=== PATIENT | female | born 1980 | race Hispanic/Latino ===

== ENCOUNTER 2017-09-08 10:59 | Inpatient (IN) | payer MEDICAID, OTHER ==
[~2017-09-08] VITALS: Ht 160 cm; Wt 79.4 kg
[2017-09-08 11:45] LABS: BASOPHILS % (AUTO) 0.3 % (0.0-5.0); EOSINOPHILS % (AUTO) 0.4 % (0.0-8.0); HEMATOCRIT 44.6 % (36-48); LYMPHOCYTES % (AUTO) 23.3 % (21.0-51.0); MEAN CORPUSCULAR HEMOGLOBIN 29.5 pg (27.0-33.0); MEAN CORPUSCULAR HGB CONC 34.3 g/dL (32.0-36.0); MEAN CORPUSCULAR VOLUME 86.1 fL (79-99); MONOCYTES % (AUTO) 3.7 % (3.0-13.0); NEUTROPHILS % (AUTO) 72.3 % (40.0-77.0); PLATELET COUNT (AUTO) 220 K/uL (130-400); RED BLOOD CELL COUNT(AUTO) 5.18 MIL/uL (4.00-5.50); RED CELL DISTRIBUTION WIDTH 14.7 % (11.0-15.5); WHITE BLOOD COUNT (AUTO) 6.4 K/uL (4.8-10.8)
[2017-09-08 11:50] LABS: APPEARANCE,URINE Clear (CLEAR); BILIRUBIN,URINE Negative (NEGATIVE); COLOR,URINE Yellow (YELLOW); GLUCOSE, URINE (UA) Negative (NEGATIVE); KETONES,URINE Negative (NEGATIVE); LEUKOCYTE ESTERASE ,URINE Negative (NEGATIVE); NITRATE,URINE Negative (NEGATIVE); OCCULT BLOOD,URINE Negative (NEGATIVE); PH,URINE 6.5 (5.0-8.0); PROTEIN,URINE 300 (NEGATIVE); UROBILINOGEN,URINE 0.2 mg/dL (0.2-1.0)
[2017-09-08 11:55] LABS: CREATININE 0.8 mg/dL (0.5-1.5); POTASSIUM 3.8 mmol/L (3.5-5.1)
[2017-09-08 11:56] LABS: INR 0.85 (0.85-1.15)
[2017-09-08 12:01] LABS: ALBUMIN 3.3 g/dL (3.5-5.0); BILIRUBIN,TOTAL 0.3 mg/dL (0.2-1.0); TOTAL PROTEIN, SERUM 8.1 g/dL (6.0-8.3); URIC ACID 4.1 mg/dL (2.6-7.2)
[2017-09-08 12:09] LABS: BACTERIA,URINE Rare /HPF (None Seen); RBC,URINE 0-1 /HPF (0-1); WBC,URINE None Seen /HPF (0-1)
[2017-09-08 12:10] LABS: PARTIAL THROMBOPLASTIN TIME 25.4 SEC (26.3-35.5)
[2017-09-08] MEDS: LACTATED RINGERS 1000ML 1,000 ML IV SCH (13:05)
[2017-09-08] MEDS ORDERED: CEFTRIAXONE SODIUM 1 GM IVP SCH (13:30)
[2017-09-08] MEDS: ACETAMINOPHEN EXTRA STRENGTH 500 MG TABLET PO SCH (13:36)
[2017-09-08] MEDS ORDERED: LACTATED RINGERS 1000ML 1,000 ML IV SCH (15:56)
[2017-09-08] MEDS ORDERED: CEFAZOLIN SODIUM 1 GM VIAL IVP PRN (16:00)
[2017-09-08] MEDS ORDERED: MAGNESIUM 4GM PREMIX 100ML 100 ML IV PRN ×2 (16:00)
[2017-09-08] MEDS ORDERED: CALCIUM GLUCONATE 1 GM/10 ML VIAL IVP PRN (16:00)
[2017-09-08] MEDS ORDERED: MAGNESIUM SULFATE 1,000 ML IV ONE (16:05)
[2017-09-08] MEDS ORDERED: DURAMORPH PF1 MG/ML 10ML AMP IV ONE (16:20)
[2017-09-08] MEDS ORDERED: CEFAZOLIN SODIUM 1 GM VIAL IVP ONE (16:25)
[2017-09-08] MEDS ORDERED: MIDAZOLAM HCL 1 MG/ML 2ML VIAL ONE (16:51)
[2017-09-08] MEDS ORDERED: OXYTOCIN 10 UNIT/1ML 10ML VIAL ONE (16:51)
[2017-09-08] MEDS ORDERED: EPHEDRINE-NS PF 50MG/5ML SYRINGE IV ONE (17:01)
[2017-09-08] MEDS ORDERED: ONDANSETRON HCL 4 MG/2 ML VIAL ONE (17:06)
[2017-09-08] MEDS ORDERED: ONDANSETRON HCL 4 MG/2 ML VIAL IVP PRN ×2 (18:00)
[2017-09-08] MEDS ORDERED: DiphenhydrAMINE HCL 50 MG/ML VIAL IVP PRN (18:00)
[2017-09-08] MEDS ORDERED: PROMETHAZINE HCL 25 MG/ML 1ML AMPULE IM PRN (18:00)
[2017-09-08] MEDS ORDERED: MORPHINE SULFATE 2 MG/ML 1ML SYG IVP PRN (18:00)
[2017-09-08] MEDS ORDERED: METOCLOPRAMIDE 10 MG/2 ML VIAL IVP PRN (18:00)
[2017-09-08] MEDS ORDERED: HYDROCODONE/ACETAMINOPHEN 5/325 MG TAB PO PRN (18:00)
[2017-09-08] MEDS ORDERED: NALOXONE HCL 0.4 MG/1 ML ML IVP PRN ×2 (18:00)
[2017-09-08] MEDS ORDERED: EPHEDRINE SULFATE 50 MG/ML AMPULE IVP PRN (18:00)
[2017-09-08] MEDS ORDERED: ONDANSETRON HCL 4 MG/2 ML 8 MG in SODIUM CHLORIDE 0.9% 50 ML IVP NR (18:00)
[2017-09-08] MEDS ORDERED: MEPERIDINE-PF 75 MG/ML SYG ONE (22:37)
[2017-09-09 04:59] LABS: BASOPHILS % (AUTO) 0.1 % (0.0-5.0); HEMATOCRIT 32.8 % (36-48); MEAN CORPUSCULAR HEMOGLOBIN 30.9 pg (27.0-33.0); MEAN CORPUSCULAR HGB CONC 36.5 g/dL (32.0-36.0); MEAN CORPUSCULAR VOLUME 84.8 fL (79-99); MONOCYTES % (AUTO) 2.9 % (3.0-13.0); PLATELET COUNT (AUTO) 175 K/uL (130-400); RED BLOOD CELL COUNT(AUTO) 3.87 MIL/uL (4.00-5.50); RED CELL DISTRIBUTION WIDTH 14.8 % (11.0-15.5); WHITE BLOOD COUNT (AUTO) 13.4 K/uL (4.8-10.8)
[2017-09-09 05:08] LABS: INR 0.84 (0.85-1.15); PARTIAL THROMBOPLASTIN TIME 26.7 SEC (26.3-35.5); PROTHROMBIN TIME 8.9 SEC (9.6-11.6)
[2017-09-09 05:11] LABS: CREATININE 0.7 mg/dL (0.5-1.5); POTASSIUM 4.3 mmol/L (3.5-5.1)
[2017-09-09 05:15] LABS: ALBUMIN 2.2 g/dL (3.5-5.0); BILIRUBIN,TOTAL 0.2 mg/dL (0.2-1.0); TOTAL PROTEIN, SERUM 5.6 g/dL (6.0-8.3); URIC ACID 4.4 mg/dL (2.6-7.2)
[2017-09-09 07:28] LABS: HEPATITIS Bs ANTIGEN SCREEN P Negative (Negative)
[2017-09-09] MEDS ORDERED: MAGNESIUM SULFATE 1,000 ML IV ONE (10:13)
[2017-09-09] MEDS: LACTATED RINGERS 1000ML 1,000 ML IV SCH (10:21)
[2017-09-09] MEDS: HYDROCODONE/ACETAMINOPHEN 5/325 MG TAB PO PRN ×3 (10:27→20:38)
[2017-09-09 20:24] VITALS: BP 132/80
[2017-09-09] MEDS ORDERED: AMMONIA 1 EA AMP IH ONE (20:59)
[2017-09-09] MEDS ORDERED: SIMETHICONE 80 MG TAB.CHEW ONE (21:34)
[2017-09-09] MEDS ORDERED: LANOLIN 30GM OINTMENT TP PRN (22:15)
[2017-09-09] MEDS ORDERED: SODIUM CHLORIDE 0.9% 10 ML VIAL IVP PRN (22:15)
[2017-09-09 22:19] VITALS: BP 135/91
[2017-09-09 23:57] VITALS: BP 139/92
[2017-09-10] VITALS (7 sets, daily range): BP systolic 135–147; BP diastolic 74–98
[2017-09-10] MEDS ORDERED: [UNRECOGNIZED DRUG - CODE] PO (00:06)
[2017-09-10] MEDS: IBUPROFEN 600 MG TABLET PO PRN (04:10)
[2017-09-10] MEDS: LABETALOL HCL 200 MG TABLET PO SCH ×3 (09:43→21:22)
[2017-09-10] MEDS: DOCUSATE SODIUM 100 MG CAP PO SCH ×2 (09:43→21:21)
[2017-09-10] MEDS: SIMETHICONE 80 MG TAB.CHEW PO PRN ×2 (09:43→21:21)
[2017-09-10] MEDS: ACETAMINOPHEN EXTRA STRENGTH 500 MG TABLET PO SCH (09:44)
[2017-09-10] MEDS: BISACODYL 10 MG SUPP.RECT RC PRN (09:44)
[2017-09-10] MEDS: DIPH,PERTUSS(ACELL),TET VAC/PF 0.5 ML VIAL IM SCH (16:05)
[2017-09-10] MEDS: ACETAMINOPHEN EXTRA STRENGTH 500 MG TABLET PO PRN (16:06)
[2017-09-10] MEDS: ACETAMINOPHEN-CODEINE 300/30MG TAB PO PRN (23:40)
[2017-09-11] VITALS (11 sets, daily range): BP systolic 137–170; BP diastolic 79–99
[2017-09-11] MEDS: IBUPROFEN 600 MG TABLET PO PRN (04:33)
[2017-09-11] MEDS: LABETALOL HCL 200 MG TABLET PO SCH ×3 (08:46→21:29)
[2017-09-11] MEDS: BISACODYL 10 MG SUPP.RECT RC PRN (08:46)
[2017-09-11] MEDS: SIMETHICONE 80 MG TAB.CHEW PO PRN ×2 (08:46→21:29)
[2017-09-11] MEDS: ACETAMINOPHEN-CODEINE 300/30MG TAB PO PRN ×2 (08:47→21:30)
[2017-09-11] MEDS: DOCUSATE SODIUM 100 MG CAP PO SCH ×2 (08:48→21:28)
[2017-09-11] MEDS: IBUPROFEN 600 MG TABLET PO SCH ×4 (11:07→23:54)
[2017-09-12] VITALS (7 sets, daily range): BP systolic 135–175; BP diastolic 89–109
[2017-09-12] MEDS: LABETALOL HCL 200 MG TABLET PO SCH ×3 (09:00→21:22)
[2017-09-12] MEDS: DOCUSATE SODIUM 100 MG CAP PO SCH ×2 (09:00→21:21)
[2017-09-12] MEDS: IBUPROFEN 600 MG TABLET PO SCH ×2 (10:15→16:40)
[2017-09-12] MEDS: ACETAMINOPHEN-CODEINE 300/30MG TAB PO PRN ×2 (10:57→13:47)
[2017-09-12] MEDS: SIMETHICONE 80 MG TAB.CHEW PO PRN ×2 (10:57→21:21)
[2017-09-12] MEDS ORDERED: PHARMACY COMMUNICATION MISC SCH (11:30)
[2017-09-13] VITALS (12 sets, daily range): BP systolic 137–187; BP diastolic 77–110
[2017-09-13] MEDS: ACETAMINOPHEN EXTRA STRENGTH 500 MG TABLET PO SCH (00:34)
[2017-09-13] MEDS: IBUPROFEN 600 MG TABLET PO SCH ×4 (04:41→23:55)
[2017-09-13 07:37] LABS: HEMATOCRIT 33.4 % (36-48); MEAN CORPUSCULAR HEMOGLOBIN 30.4 pg (27.0-33.0); MEAN CORPUSCULAR VOLUME 86.7 fL (79-99); PLATELET COUNT (AUTO) 253 K/uL (130-400); RED BLOOD CELL COUNT(AUTO) 3.86 MIL/uL (4.00-5.50); RED CELL DISTRIBUTION WIDTH 14.7 % (11.0-15.5); WHITE BLOOD COUNT (AUTO) 7.7 K/uL (4.8-10.8)
[2017-09-13 07:51] LABS: ALBUMIN 2.5 g/dL (3.5-5.0); BILIRUBIN,TOTAL 0.3 mg/dL (0.2-1.0); CREATININE 0.7 mg/dL (0.5-1.5); POTASSIUM 3.8 mmol/L (3.5-5.1); TOTAL PROTEIN, SERUM 6.6 g/dL (6.0-8.3)
[2017-09-13] MEDS ORDERED: LABETALOL HCL 200 MG TABLET PO SCH ×3 (09:00→21:00)
[2017-09-13] MEDS: DOCUSATE SODIUM 100 MG CAP PO SCH ×2 (09:00→20:53)
[2017-09-13] MEDS: SIMETHICONE 80 MG TAB.CHEW PO PRN ×2 (09:00→20:54)
[2017-09-13] MEDS: DIPH,PERTUSS(ACELL),TET VAC/PF 0.5 ML VIAL IM SCH (16:29)
[2017-09-13] MEDS: ACETAMINOPHEN-CODEINE 300/30MG TAB PO PRN (17:02)
[2017-09-13] MEDS ORDERED: LABETALOL HCL 100 MG TABLET PO ONE ×2 (18:30→23:15)
[2017-09-14] VITALS (7 sets, daily range): BP systolic 146–191; BP diastolic 79–102
[2017-09-14] MEDS: ACETAMINOPHEN EXTRA STRENGTH 500 MG TABLET PO PRN (02:11)
[2017-09-14] MEDS ORDERED: NIFEDIPINE ER 30 MG TAB PO SCH ×2 (03:00→09:00)
[2017-09-14] MEDS ORDERED: NIFEDIPINE ER 30 MG TAB PO ONE (03:11)
[2017-09-14] MEDS: IBUPROFEN 600 MG TABLET PO SCH (06:06)
[2017-09-14 06:36] LABS: BASOPHILS % (AUTO) 0.3 % (0.0-5.0); EOSINOPHILS % (AUTO) 2.8 % (0.0-8.0); HEMATOCRIT 32.2 % (36-48); LYMPHOCYTES % (AUTO) 24.2 % (21.0-51.0); MEAN CORPUSCULAR HGB CONC 34.8 g/dL (32.0-36.0); MONOCYTES % (AUTO) 4.9 % (3.0-13.0); NEUTROPHILS % (AUTO) 67.8 % (40.0-77.0); PLATELET COUNT (AUTO) 271 K/uL (130-400); RED BLOOD CELL COUNT(AUTO) 3.74 MIL/uL (4.00-5.50); RED CELL DISTRIBUTION WIDTH 14.8 % (11.0-15.5); WHITE BLOOD COUNT (AUTO) 5.5 K/uL (4.8-10.8)
[2017-09-14 06:45] LABS: CREATININE 0.5 mg/dL (0.5-1.5); POTASSIUM 3.7 mmol/L (3.5-5.1)
[2017-09-14 06:47] LABS: INR 0.89 (0.85-1.15); PARTIAL THROMBOPLASTIN TIME 24.5 SEC (26.3-35.5); PROTHROMBIN TIME 9.4 SEC (9.6-11.6)
[2017-09-14 06:50] LABS: ALBUMIN 2.5 g/dL (3.5-5.0); BILIRUBIN,TOTAL 0.3 mg/dL (0.2-1.0); TOTAL PROTEIN, SERUM 5.9 g/dL (6.0-8.3)
[2017-09-14] MEDS ORDERED: LABETALOL HCL 200 MG TABLET PO SCH ×3 (09:00→21:00)
[2017-09-15] MEDS ORDERED: NIFEDIPINE ER 30 MG TAB PO SCH (09:00)
== END 2017-09-14 11:10 | disposition home or self-care (01) | DRG 766 ==
LOC: OBSVTOIN 10:59 → LDH 10:59 → WSH 09-09 22:15
PROVIDERS: ADMIT Obstetrics & Gynecology; ATTEND Obstetrics & Gynecology
PROC: 3E0234Z Introduction of Serum, Toxoid and Vaccine into Muscle, Percutaneous Approach (ICD-10-PCS; 2017-09-08)
PROC: 10D00Z1 Extraction of Products of Conception, Low, Open Approach (ICD-10-PCS; principal; 2017-09-08 16:41)
DX: O24.420 Gestational diabetes mellitus in childbirth, diet controlled (principal); O34.211 Maternal care for low transverse scar from previous cesarean delivery; Z37.0 Single live birth; Z3A.37 37 weeks gestation of pregnancy; Z23 Encounter for immunization
CPT/HCPCS: 36415; 59510; 80053; 81001; 84550; 85025; 85027; 85384; 85610; 85730; 86592; 86850; 86900; 86901; 87340; 90715; A4344; A4450; A4606; J0690; J0696; J2175; J2250; J2274; J2405; J2550; J2590; J3475; J3490; J7120

== ENCOUNTER 2019-07-11 16:00 | Inpatient (IN) | payer MEDICAID, OTHER ==
[2019-07-11 13:35] LABS: BASOPHILS % (AUTO) 0.1 % (0.0-5.0); EOSINOPHILS % (AUTO) 0.3 % (0.0-8.0); HEMATOCRIT 35.9 % (36-48); LYMPHOCYTES % (AUTO) 25.7 % (21.0-51.0); MEAN CORPUSCULAR HEMOGLOBIN 29.3 pg (27.0-33.0); MEAN CORPUSCULAR HGB CONC 34.2 g/dL (32.0-36.0); MEAN CORPUSCULAR VOLUME 85.7 fL (79-99); MONOCYTES % (AUTO) 3.1 % (3.0-13.0); NEUTROPHILS % (AUTO) 70.8 % (40.0-77.0); NUCLEATED RED BLOOD CELLS 0.1 % (0.0-0.19); PLATELET COUNT (AUTO) 210 K/uL (130-400); RED BLOOD CELL COUNT(AUTO) 4.19 MIL/uL (4.00-5.50); RED CELL DISTRIBUTION WIDTH 13.8 % (11.0-15.5); WHITE BLOOD COUNT (AUTO) 5.7 K/uL (4.8-10.8)
[2019-07-11 13:44] LABS: CREATININE 0.8 mg/dL (0.5-1.5); POTASSIUM 3.8 mmol/L (3.5-5.1)
[2019-07-11 13:47] LABS: INR 0.85 (0.85-1.15); PARTIAL THROMBOPLASTIN TIME 24.3 SEC (26.3-35.5)
[2019-07-11 13:49] LABS: ALBUMIN 2.8 g/dL (3.5-5.0); BILIRUBIN,TOTAL 0.2 mg/dL (0.2-1.0); URIC ACID 4.4 mg/dL (2.6-7.2)
[~2019-07-11 16:00] MED LIST: [UNRECOGNIZED DRUG - CODE] PO
[2019-07-12] MEDS ORDERED: LACTATED RINGERS 1000ML 1,000 ML IV SCH (05:45)
[2019-07-12] MEDS ORDERED: CEFAZOLIN SODIUM 1 GM VIAL IVP PRN (05:45)
[2019-07-12] MEDS ORDERED: ONDANSETRON HCL 4 MG/2 ML VIAL ONE ×2 (06:13→11:39)
[2019-07-12] MEDS ORDERED: OXYTOCIN 10 USP UNITS/ML ONE (06:13)
[2019-07-12] MEDS ORDERED: DURAMORPH PF1 MG/ML 10ML AMP IV ONE (06:13)
[2019-07-12] MEDS ORDERED: FENTANYL CITRATE PF 50 MCG/1 ML 2ML VIAL ONE (06:14)
[2019-07-12] MEDS ORDERED: GLYCOPYRROLATE 1 MG/5 ML SYRINGE ONE (06:48)
[2019-07-12] MEDS ORDERED: CITRIC ACID/SODIUM CITRATE 30 ML UDCUP ONE (06:52)
[2019-07-12 07:14] LABS: HEPATITIS Bs ANTIGEN SCREEN P Negative (Negative)
[2019-07-12] MEDS ORDERED: OXYTOCIN-LR 20 UNITS/1000 ML 1,000 ML IV ONE (07:25)
--- NOTE | 2019-07-12 08:55 | NUR ---
PATIENT ARRIVED FROM LABOR AND DELIVERY. DRESSING IN DRY AND INTACT.FUNDUS IS FIRM, BLEEDING IS SCANT. NO PAIN REPORTED AT THIS TIME. PT ORIENTED TO ROOM, CALL LIGHT LEFT IN REACH.
[2019-07-12 09:08] VITALS: BP 141/88
[2019-07-12] MEDS ORDERED: SODIUM CHLORIDE 0.9% 10 ML VIAL IVP PRN (09:30)
[2019-07-12] MEDS ORDERED: OXYTOCIN-LR 20 UNITS/1000 ML 1,000 ML IV PRN (09:30)
[2019-07-12] MEDS ORDERED: PROMETHAZINE HCL 25 MG/ML 1ML AMPULE IM PRN (09:30)
[2019-07-12] MEDS ORDERED: MEPERIDINE-PF 75 MG/ML SYG IM PRN (09:30)
[2019-07-12] MEDS ORDERED: ASPI-1197 PO (10:33)
[2019-07-12 11:37] VITALS: BP 143/92
[2019-07-12] MEDS ORDERED: MEPERIDINE-PF 50 MG/ML SYG ONE (11:50)
[2019-07-12] MEDS ORDERED: MEPERIDINE-PF 25 MG/ML SYG ONE (11:51)
--- NOTE | 2019-07-12 11:59 | NUR ---
DEMEROL 75 MG AND PHENERGAN 25MG GIVEN IM TO RIGHT GLUTE. NO BLOOD RETURN ON ASPIRATION. PATIENT TOLERATED INJECTION WELL.
[2019-07-12] MEDS: DEXTROSE 5 %-0.45 % NACL 1,000 ML IV PRN ×2 (14:39→21:33)
[2019-07-12] MEDS ORDERED: NALOXONE HCL 0.4 MG/1 ML ML IVP PRN ×3 (16:45)
[2019-07-12] MEDS ORDERED: ONDANSETRON HCL 4 MG/2 ML VIAL IVP PRN (16:45)
[2019-07-12] MEDS ORDERED: EPHEDRINE SULFATE 50 MG/ML AMPULE IVP PRN (16:45)
[2019-07-12] MEDS ORDERED: DiphenhydrAMINE HCL 50 MG/ML VIAL IVP PRN (16:45)
[2019-07-12 17:03] VITALS: BP 152/93
[2019-07-12 19:21] VITALS: BP 155/95
[2019-07-12] MEDS: ACETAMINOPHEN-CODEINE 300/30MG TAB PO PRN (22:01)
[2019-07-12 23:12] VITALS: BP 144/90
[2019-07-13] VITALS (7 sets, daily range): BP systolic 125–152; BP diastolic 81–99
[2019-07-13] MEDS: DEXTROSE 5 %-0.45 % NACL 1,000 ML IV PRN (04:33)
[2019-07-13] MEDS: ACETAMINOPHEN-CODEINE 300/30MG TAB PO PRN ×2 (04:37→16:29)
[2019-07-13 06:06] LABS: HEMATOCRIT 32.7 % (36-48); MEAN CORPUSCULAR HEMOGLOBIN 28.8 pg (27.0-33.0); MEAN CORPUSCULAR HGB CONC 34.1 g/dL (32.0-36.0); MEAN CORPUSCULAR VOLUME 84.6 fL (79-99); PLATELET COUNT (AUTO) 201 K/uL (130-400); RED BLOOD CELL COUNT(AUTO) 3.86 MIL/uL (4.00-5.50); RED CELL DISTRIBUTION WIDTH 14.1 % (11.0-15.5); WHITE BLOOD COUNT (AUTO) 9.7 K/uL (4.8-10.8)
--- NOTE | 2019-07-13 06:40 | NUR ---
PARKS CATHETER F/C REMOVED, INTACT, TOLERATED WELL, INSTRUCTED TO CALL NURSE FOR ASSISTANCE WHEN SHE HAS URGE TO VOID Addendum: 07/13/19 at 0747 by ANGEL PARIKH LVN Amended: Links added.
[2019-07-13] MEDS ORDERED: BISACODYL 10 MG SUPP.RECT RC PRN (09:00)
[2019-07-13] MEDS ORDERED: ACETAMINOPHEN EXTRA STRENGTH 500 MG TABLET PO PRN (09:00)
[2019-07-13] MEDS: SIMETHICONE 80 MG TAB.CHEW PO PRN ×2 (09:21→16:28)
[2019-07-13] MEDS: IBUPROFEN 600 MG TABLET PO PRN (09:22)
[2019-07-13] MEDS: DOCUSATE SODIUM 100 MG CAP PO SCH ×2 (09:22→20:53)
--- NOTE | 2019-07-13 11:53 | NUR ---
PATIENT AMBULATING IN THE HALLWAY. NO C/O DIZZINESS REPORTED. STEADY GAIT NOTED.
[2019-07-13] MEDS ORDERED: DIPH,PERTUSS(ACELL),TET VAC/PF 0.5 ML VIAL IM SCH (16:30)
[2019-07-13] MEDS: HYDROCODONE/ACETAMINOPHEN 5/325 MG TAB PO PRN (20:54)
[2019-07-14] MEDS: SIMETHICONE 80 MG TAB.CHEW PO PRN ×3 (00:56→13:12)
[2019-07-14] MEDS: IBUPROFEN 600 MG TABLET PO PRN ×2 (00:57→08:31)
[2019-07-14 03:23] VITALS: BP 143/90
[2019-07-14 08:00] VITALS: BP 142/101
[2019-07-14] MEDS: DOCUSATE SODIUM 100 MG CAP PO SCH (08:31)
[2019-07-14] MEDS: HYDROCODONE/ACETAMINOPHEN 5/325 MG TAB PO PRN (08:33)
[2019-07-14 09:50] VITALS: BP 131/90
[2019-07-14 11:49] VITALS: BP 141/93
--- NOTE | 2019-07-14 13:33 | NUR ---
EBONY CONTRERAS CNM CALLED AND REPORTED BLOOD PRESSURES ON PATIENT. ORDER GIVEN TO GIVEN SIGNS AND SYMPTOMS TO REPORT TO EMERGENCY DEPT. AND DISCHARGE PATIENT TO HOME.
--- NOTE | 2019-07-14 15:45 | NUR ---
PATIENT WAS TAKEN VIA W/C CARRYING BABY IN ARMS TO FAMILY VEHICLE FOR DISCHARGE. PATIENT AND BABY DISCHARGED TO HER SPOUSE IN STABLE CONDITION.
== END 2019-07-14 15:45 | disposition home or self-care (01) | DRG 788 ==
LOC: EDSTATUS 16:00 → LDH 07-12 05:40 → WSH 07-12 08:55
PROVIDERS: ADMIT Obstetrics & Gynecology; ATTEND Obstetrics & Gynecology
PROC: 10D00Z1 Extraction of Products of Conception, Low, Open Approach (ICD-10-PCS; 2019-07-12)
PROC: 3E0234Z Introduction of Serum, Toxoid and Vaccine into Muscle, Percutaneous Approach (ICD-10-PCS; principal; 2019-07-13)
DX: O34.219 Maternal care for unspecified type scar from previous cesarean delivery (principal); Z37.0 Single live birth; Z23 Encounter for immunization; O24.429 Gestational diabetes mellitus in childbirth, unspecified control; Z3A.38 38 weeks gestation of pregnancy; O11.4 Pre-existing hypertension with pre-eclampsia, complicating childbirth
CPT/HCPCS: 36415; 59510; 80053; 84550; 85025; 85027; 85384; 85610; 85730; 86592; 86850; 86900; 86901; 87340; 90715; A4344; G0378; J0690; J2175; J2274; J2405; J2550; J2590; J3010; J3490; J7120